=== PATIENT | female | born 1960 | race Caucasian/White ===

== ENCOUNTER 2016-07-10 21:30 | Emergency (ER) | payer OTHER ==
[2016-07-10 21:40] VITALS: O2SAT 94
--- NOTE | 2016-07-10 22:03 | EDPHY ---
H & P Stated Complaint: pt c/o R lower back pain x 1 day, pain getting worse Time Seen by Provider: 07/10/16 21:44 HPI/ROS: CHIEF COMPLAINT: Right flank pain times 24 hours HISTORY OF PRESENT ILLNESS: 56-year-old female history of obesity complaining of atraumatic right flank pain for the past 24 hours. Pain described as a constant dull ache. She does describe pain which is reproducible with range of motion. She describes a deep ache does not feel it is secondary to acute muscular strain. She denies: Abdominal pain, fever, chills, incontinence, retention, saddle anesthesia, radiculopathy, trauma, rash or vesicles no incontinence. No retention. No saddle anesthesia. No radiculopathy. No midline back pain. REVIEW OF SYSTEMS: A ten point review of systems was performed and is negative with the exception of the items mentioned in the HPI PAST MEDICAL & SURGICAL HISTORY: Atrial fibrillation. Hysterectomy. Hepatitis-C. Obesity. SOCIAL HISTORY:nonsmoker PHYSICAL EXAM (Prior to examination, patient consented to physical exam, hands were washed and my usual and customary physical exam procedures followed) 1) GENERAL: obese female, alert and oriented. Appears nontoxic. 2) HEAD: Normocephalic, atraumatic 3) HEENT: Pupils equal, round, reactive to light bilaterally. Sclera anicteric. Nasopharynx, oropharynx, clear, no lesions. 4) NECK: Full range of motion, no meningeal signs. 5) LUNGS: Clear auscultation bilaterally, no wheezes, no rhonchi, no retractions. 6) HEART: Regular rate and rhythm, no murmur, no heave, no gallop. 7) ABDOMEN: No guarding, no rebound, no focal tenderness, negative McBurney's, negative Gonzalez's, negative Rovsing's, negative peritoneal sign, 8) MUSCULOSKELETAL: Moving all extremities, no focal areas of tenderness, no obvious trauma. No peripheral edema or discoloration. Patella and Achilles reflexes intact to bilateral strength 5/5. No footdrop. 9) BACK: reproducible right flank and paraspinous pain with range of motion. No CVA tenderness, no midline vertebral tenderness, no fluctuance, no step-off, no obvious trauma, no visual or palpable abnormality. 10) SKIN: No rash, no petechiae. 11) Psychiatric: Patient is oriented X 3, there is no agitation. DIFFERENTIAL DIAGNOSIS: in no particular include but limited to nephrolithiasis, pyelonephritis, abdominal aortic aneurysm, zoster, muscle strain - Medical/Surgical History Hx Asthma: No Hx Chronic Respiratory Disease: No Hx Diabetes: No Hx Cardiac Disease: Yes Hx Renal Disease: No Hx Cirrhosis: No Hx Alcoholism: No Hx HIV/AIDS: No Hx Splenectomy or Spleen Trauma: No Other PMH: PACER AFIB, hysterectomy, hep c - Social History Smoking Status: Current every day smoker Constitutional: Initial Vital Signs Temperature (C) 36.7 C 07/10/16 21:35 Heart Rate 76 07/10/16 21:35 Respiratory Rate 16 07/10/16 21:35 Blood Pressure 161/87 H 07/10/16 21:35 O2 Sat (%) 94 07/10/16 21:35 O2 Delivery Mode Room Air Allergies/Adverse Reactions: codeine [Codeine] Allergy (Mild, Verified 07/10/16 21:40) Rash Home Medications: Medication Instructions Recorded Metoprolol 10/23/09 Amoxicillin 07/10/16 Cephalexin [Keflex] 500 mg PO TID 10 Days 07/10/16 Eliquis 07/10/16 Multaq 400 mg (*) 07/10/16 Medical Decision Making - Diagnostics Imaging: CT Scan of the Abdomen and Pelvis (Without Contrast) Clinical Indications: Flank pain. Technique: Multidetector helical CT imaging was performed from the diaphragm to the symphysis pubis. Routine reconstructions were performed. Dose reduction techniques were utilized. Findings Abdomen: The lung bases are clear, and there is no significant pleural fluid. The liver is normal. The biliary ducts and gallbladder are unremarkable. The pancreas and spleen are normal. The adrenal glands and kidneys are normal. No adenopathy and no masses are found. No aneurysm of the abdominal aorta. Pelvis: The urinary bladder is unremarkable. No free fluid in the pelvis. No masses are identified. Bowel loops are normal. The uterus is absent. Impression: Normal CT of the abdomen and pelvis, without contrast. Critical results relayed by Dr. Bernabe to WALDEMAR Massey, on July 10, 2016 at 2241 hours. Dictated By: Ziggy Bernabe MD Images reviewed by myself - Data Points Laboratory Results: Laboratory Results 07/10/16 22:05 07/10/16 22:05 07/10/16 07/10/16 22:05 21:57 WBC 10.35 H 10^3/uL (3.80-9.50) RBC 4.68 10^6/uL (4.18-5.33) Hgb 15.7 g/dL (12.6-16.3) Hct 44.9 % (38.0-47.0) MCV 95.9 fL (81.5-99.8) MCH 33.5 pg (27.9-34.1) MCHC 35.0 g/dL (32.4-36.7) RDW 12.0 % (11.5-15.2) Plt Count 202 10^3/uL (150-400) MPV 10.1 fL (8.7-11.7) Neut % (Auto) 51.4 % (39.3-74.2) Lymph % (Auto) 37.2 % (15.0-45.0) [place] % (Auto) 6.6 % (4.5-13.0) Eos % (Auto) 3.7 % (0.6-7.6) Baso % (Auto) 0.8 % (0.3-1.7) Nucleat RBC Rel Count 0.0 % (0.0-0.2) Absolute Neuts (auto) 5.33 10^3/uL (1.70-6.50) Absolute Lymphs (auto) 3.85 H 10^3/uL (1.00-3.00) Absolute Monos (auto) 0.68 10^3/uL (0.30-0.80) Absolute Eos (auto) 0.38 10^3/uL (0.03-0.40) Absolute Basos (auto) 0.08 10^3/uL (0.02-0.10) Absolute Nucleated RBC 0.00 10^3/uL (0-0.01) Immature Gran % 0.3 % (0.0-1.1) Immature Gran # 0.03 10^3/uL (0.00-0.10) Sodium 142 mEq/L (134-144) Potassium 3.7 mEq/L (3.5-5.2) Chloride 105 mEq/L (97-110) Carbon Dioxide 25 mEq/l (22-31) Anion Gap 12 mEq/L (8-16) BUN 16 mg/dL (7-23) Creatinine 0.7 mg/dL (0.6-1.0) Estimated GFR > 60 Glucose 85 mg/dL (70-100) Calcium 9.6 mg/dL (8.5-10.4) Total Bilirubin 0.6 mg/dL (0.1-1.4) Conjugated Bilirubin 0.2 mg/dL (0.0-0.5) Unconjugated Bilirubin 0.4 mg/dL (0.0-1.1) AST 30 IU/L (14-46) ALT 38 IU/L (9-52) Alkaline Phosphatase 76 IU/L (38-126) Total Protein 7.3 g/dL (6.3-8.2) Albumin 4.2 g/dL (3.5-5.0) Lipase 128.0 IU/L (23-300) Urine Color YELLOW Urine Appearance CLEAR Urine pH 5.0 (5.0-7.5) Ur Specific [place] 1.008 (1.002-1.030) Urine Protein NEGATIVE (NEGATIVE) Urine Ketones NEGATIVE (NEGATIVE) Urine Blood NEGATIVE (NEGATIVE) Urine Nitrate NEGATIVE (NEGATIVE) Urine Bilirubin NEGATIVE (NEGATIVE) Urine Urobilinogen NEGATIVE EU (0.2-1.0) Ur Leukocyte Esterase 1+ H (NEGATIVE) Urine RBC 1-3 /hpf (0-3) Urine WBC 5-10 H /hpf (0-3) Ur Epithelial Cells TRACE /lpf (NONE-1+) Urine Glucose NEGATIVE (NEGATIVE) Departure - Departure Disposition: Home, Routine, Self-Care Clinical Impression: Pyelonephritis Condition: Good Instructions: Flank Pain (ED), Kidney Infection (ED) Additional Instructions: Return to the ER immediately if you experience fevers/chills, flu like symptoms , inability to tolerate oral intake, nausea or vomiting, or any other symptoms that concern you. Referrals: Ngoc Gupta NP [Primary Care Provider] - 1-2 days without fail Prescriptions: Cephalexin [Keflex] 500 mg PO TID 10 Days
[2016-07-10 22:05] LABS: COLOR YELLOW; LEUKOCYTE ESTERASE,URINE 1+ (NEGATIVE); NITRITE,URINE NEGATIVE (NEGATIVE)
[2016-07-10 22:19] LABS: % IMMATURE GRANULYOCYTES 0.3 % (0.0-1.1); ABSOLUTE IMMATURE GRANULOCYTES 0.03 10^3/uL (0.00-0.10); ADD DIFF? NO; ADD MORPH? NO; ADD SCAN? NO; ATYPICAL LYMPHOCYTE FLAG 10 (0-99); FRAGMENT RBC FLAG 0 (0-99); HEMATOCRIT 44.9 % (38.0-47.0); HEMOGLOBIN 15.7 g/dL (12.6-16.3); LEFT SHIFT FLG 0 (0-99); LIPEMIA HEMOLYSIS FLAG 90 (0-99); MEAN CELL HEMOGLOBIN 33.5 pg (27.9-34.1); MEAN CELL VOLUME 95.9 fL (81.5-99.8); MEAN PLATELET VOLUME 10.1 fL (8.7-11.7); PLATELET CLUMPS FLAG 10 (0-99); PLATELET COUNT 202 10^3/uL (150-400); RED BLOOD CELL COUNT 4.68 10^6/uL (4.18-5.33)
[2016-07-10 22:37] LABS: ALANINE AMINOTRANSFERASE 38 IU/L (9-52); ALBUMIN 4.2 g/dL (3.5-5.0); ALKALINE PHOSPHATASE 76 IU/L (38-126); ANION GAP 12 mEq/L (8-16); ASPARTATE AMINOTRANSFERASE 30 IU/L (14-46); BILIRUBIN,TOTAL 0.6 mg/dL (0.1-1.4); BILIRUBIN-CONJUGATED 0.2 mg/dL (0.0-0.5); BILIRUBIN-UNCONJUGATED 0.4 mg/dL (0.0-1.1); CALCIUM 9.6 mg/dL (8.5-10.4); CARBON DIOXIDE 25 mEq/l (22-31); CHLORIDE 105 mEq/L (97-110); CREATININE 0.7 mg/dL (0.6-1.0); GLOMERULAR FILTRATION RATE > 60; GLUCOSE 85 mg/dL (70-100); POTASSIUM 3.7 mEq/L (3.5-5.2); SODIUM 142 mEq/L (134-144); TOTAL PROTEIN 7.3 g/dL (6.3-8.2)
--- NOTE | 2016-07-10 22:44 | CT ---
CT Scan of the Abdomen and Pelvis (Without Contrast) Clinical Indications: Flank pain. Technique: Multidetector helical CT imaging was performed from the diaphragm to the symphysis pubis. Routine reconstructions were performed. Dose reduction techniques were utilized. Findings Abdomen: The lung bases are clear, and there is no significant pleural fluid. The liver is normal. The biliary ducts and gallbladder are unremarkable. The pancreas and spleen are normal. The adrena l glands and kidneys are normal. No adenopathy and no masses are found. No aneurysm of the abdomina l aorta. Pelvis: The urinary bladder is unremarkable. No free fluid in the pelvis. No masses are identified . Bowel loops are normal. The uterus is absent. Impression: Normal CT of the abdomen and pelvis, without contrast. Critical results relayed by Dr. Bernabe to WALDEMAR Massey, on July 10, 2016 at 2241 hours.
[2016-07-10] MEDS ORDERED: HYDROCOD/APAP 5/325 PREPACK#6 BTL TAKEHOME ONE (23:23)
[2016-07-10] MEDS ORDERED: HYDROCODONE/APAP 5/325 TAB PO ONE (23:25)
[2016-07-10 23:51] VITALS: BP 134/85; PULSE 72; RESP 20; TEMP 98.2
== END 2016-07-10 23:52 | disposition home or self-care (01) ==
DX: N12 Tubulo-interstitial nephritis, not specified as acute or chronic (principal); F17.200 Nicotine dependence, unspecified, uncomplicated; B96.89 Other specified bacterial agents as the cause of diseases classified elsewhere
CPT/HCPCS: 96365; J0696

== ENCOUNTER 2016-09-24 11:35 | Day surgery (SDC) | payer OTHER ==
[2016-09-24] MEDS ORDERED: DIAZEPAM 5 MG TAB PO ONE (11:38)
[2016-09-24] MEDS ORDERED: NS 1,000 ML IV ONE (11:38)
[2016-09-24] MEDS ORDERED: ceFAZolin 2 GM/DEXTROSE 100 ML IV ONE (11:38)
[2016-09-24] MEDS ORDERED: BACITRACIN IRRIGATION/NS 50,000 UNITS/1,000 ML BTL IRR ONE (11:38)
[2016-09-24] MEDS ORDERED: diphenhydrAMINE 25 MG CAP PO ONE (11:38)
--- NOTE | 2016-09-24 12:08 | CPEKG ---
Heart Rate: 73 RR Interval: 822 P-R Interval: 176 QRSD Interval: 102 QT Interval: 416 QTC Interval: 459 P [place]: 66 QRS [place]: -30 T Wave [place]: 21 EKG Severity - OTHERWISE NORMAL ECG - EKG Impression: SINUS RHYTHM EKG Impression: LEFT AXIS DEVIATION EKG Impression: NORMAL SINUS RHYTHM HAS REPLACED ATRIAL FIBRILLATION NOTED ON PRIOR ECG Electronically Signed By: Richard Koehler 24-Sep-2016 12:54:00
[2016-09-24 12:21] LABS: % IMMATURE GRANULYOCYTES 0.1 % (0.0-1.1); ABSOLUTE IMMATURE GRANULOCYTES 0.01 10^3/uL (0.00-0.10); ADD DIFF? NO; ADD MORPH? NO; ADD SCAN? NO; ATYPICAL LYMPHOCYTE FLAG 10 (0-99); FRAGMENT RBC FLAG 0 (0-99); HEMATOCRIT 47.3 % (38.0-47.0); LEFT SHIFT FLG 0 (0-99); LIPEMIA HEMOLYSIS FLAG 90 (0-99); MEAN CELL HEMOGLOBIN 31.9 pg (27.9-34.1); MEAN CELL HEMOGLOBIN CONCENTR. 33.8 g/dL (32.4-36.7); MEAN CELL VOLUME 94.2 fL (81.5-99.8); MEAN PLATELET VOLUME 11.2 fL (8.7-11.7); PLATELET CLUMPS FLAG 40 (0-99); PLATELET COUNT 190 10^3/uL (150-400); RED BLOOD CELL COUNT 5.02 10^6/uL (4.18-5.33); RED CELL DISTRIBUTION WIDTH 12.4 % (11.5-15.2)
[2016-09-24 12:34] LABS: INR 0.86 (0.83-1.16); PROTIME(PATIENT) 11.6 SEC (12.0-15.0)
[2016-09-24 12:59] LABS: ANION GAP 12 mEq/L (8-16); CALCIUM 9.9 mg/dL (8.5-10.4); CARBON DIOXIDE 22 mEq/l (22-31); CHLORIDE 107 mEq/L (97-110); CREATININE 0.6 mg/dL (0.6-1.0); GLOMERULAR FILTRATION RATE > 60; GLUCOSE 88 mg/dL (70-100); POTASSIUM 4.9 mEq/L (3.5-5.2); SODIUM 141 mEq/L (134-144); SPECIMEN HEMOLYSIS 130
[2016-09-24] MEDS ORDERED: fentaNYL 100 MCG/2 ML INJ ONE (13:27)
[2016-09-24] MEDS ORDERED: MIDAZOLAM 2 MG/2 ML VIAL ONE (13:27)
[2016-09-24] MEDS ORDERED: BUPIVACAINE 0.5% 30 ML SDV ONE (13:27)
--- NOTE | 2016-09-24 14:17 | EPPROC ---
Electrophysiology Procedure Note: PROCEDURE PERFORMED: 1. AV Pacemaker generator change INDICATION: Pacemaker generator at BOGDAN Bradycardia PROCEDURE NOTE: Patient presented to the cardiac catheterization laboratory in a fasting, postabsorptive state. CCL RN administered sedation. The left infraclavicular area was prepped and draped in the usual sterile fashion. Lidocaine plus bupivacaine was used for local anesthesia. Using a combination of blunt and sharp dissection and electrocautery, the dissection was carried down to the prepectoral fascia and the existing pacemaker pocket was opened. The pacemaker generator was disconnected from the leads and the lead thresholds and impedance were checked. The pacemaker pocket was copiously irrigated with antibiotic solution. The pocket was again inspected for any bleeding. The leads were attached to the pacemaker securely. The pacemaker was inserted into the pocket and secured in place with a nonabsorbable suture. The pacemaker pocket was closed in 3 layers with absorbable monocryl sutures and pj. Appropriate dressing was applied. The patient left the cardiac catheterization laboratory in stable condition. Serial Numbers: 1. Device Biotronik Etrinsa [id number] 2. Atrial Lead SJM 1882 [id number] 3. Ventricular Lead Biotronik Setrox S53 SN [id number] Stimulation Thresholds & Impedance Measurements: 1. Atrial Lead P 3.6 mV 1.4 V 0.4 ms 351 ohm 2. Ventricular Lead R 5.2mV 1.1 V 0.4 ms 476 ohm [place] Pacing Parameters 1. Pacing mode DDD CLS 2. Lower rate 70 ppm 3. Upper tracking rate 130 ppm 4. Upper sensor rate 130 ppm Patient Problems: Problems Problem Status Onset Bradycardia Acute
== END 2016-09-24 17:30 | disposition home or self-care (01) ==
LOC: FCATH 11:35
PROVIDERS: ATTEND Internal Medicine Cardiovascular Disease
DX: Z45.010 Encounter for checking and testing of cardiac pacemaker pulse generator [battery] (principal); R00.1 Bradycardia, unspecified; I48.91 Unspecified atrial fibrillation; I47.2 Ventricular tachycardia; I44.1 Atrioventricular block, second degree; I44.2 Atrioventricular block, complete; I25.10 Atherosclerotic heart disease of native coronary artery without angina pectoris; E78.5 Hyperlipidemia, unspecified; I27.2 Other secondary pulmonary hypertension; Z79.01 Long term (current) use of anticoagulants; Z79.82 Long term (current) use of aspirin
CPT/HCPCS: C1785; J0690; J2250; J3010

== ENCOUNTER → 2017-05-12 | Outpatient (CLI) | payer OTHER | LOC: BMCIMAGING 19:00 | PROVIDERS: ATTEND Family Medicine | DX: R05 Cough (principal); R06.02 Shortness of breath ==

== ENCOUNTER 2018-01-13 11:03 | Observation (INO) | payer OTHER ==
[2018-01-13] MEDS ORDERED: ceFAZolin 2 GM/DEXTROSE 100 ML IV ONE (11:06)
[2018-01-13] MEDS ORDERED: BACITRACIN IRRIGATION/NS 50,000 UNITS/1,000 ML BTL IRR ONE (11:06)
[2018-01-13] MEDS ORDERED: NS 1,000 ML IV ONE (11:06)
--- NOTE | 2018-01-13 11:32 | CPEKG ---
Heart Rate: 82 RR Interval: 732 P-R Interval: 184 QRSD Interval: 104 QT Interval: 384 QTC Interval: 449 QRS [place]: -26 T Wave [place]: 39 EKG Severity - ABNORMAL ECG - EKG Impression: ATRIAL-PACED RHYTHM EKG Impression: BORDERLINE LEFT AXIS DEVIATION Electronically Signed By: Cole Joaquin 13-Jan-2018 11:56:20
[2018-01-13] MEDS ORDERED: LIDOCAINE 1% 300 MG/30 ML SDV ONE ×2 (11:35→11:36)
[2018-01-13] MEDS ORDERED: BUPIVACAINE 0.75% 10 ML SDV ONE ×2 (11:35→11:36)
[2018-01-13] MEDS ORDERED: IOPAMIDOL (ISOVUE-300) 100 ML BTL ONE (11:36)
[2018-01-13] MEDS ORDERED: ISOPROTERENOL HCL/D5W 0.2 MG/50 ML BAG IV ONE (11:36)
[2018-01-13] MEDS ORDERED: MIDAZOLAM 2 MG/2 ML VIAL IVP ONE (11:40)
--- NOTE | 2018-01-13 11:42 | PDANEPAE ---
ANE History of Present Illness ep study ANE Past Medical History - Cardiovascular History Hx Hypertension: No Hx Arrhythmias: Yes Hx Chest Pain: No Hx Coronary Artery / Peripheral Vascular Disease: No Hx CHF / Valvular Disease: No Hx Palpitations: No - Pulmonary History Hx COPD: No Hx Asthma/Reactive Airway Disease: No Hx Recent Upper Respiratory Infection: No Hx Oxygen in Use at Home: No Pulmonary History Comment: smoker, pneumonia this winter - Neurologic History Hx Cerebrovascular Accident: No Hx Seizures: No Hx Dementia: No - Endocrine History Hx Diabetes: No Hypothyroid: No Hyperthyroid: No - Renal History Hx Renal Disorders: No - Liver History Hx Hepatic Disorders: No ANE Review of Systems Review of Systems: ANE Patient History - Allergies Allergies/Adverse Reactions: codeine [Codeine] Allergy (Mild, Verified 07/10/16 21:40) Rash - Home Medications Home medications: home medication list seen and reviewed Home Medications: Metoprolol Succinate Xr [Toprol Xl 100 mg (*)] 100 mg PO DAILY #0 10/23/09 [ Last Taken Unknown] Apixaban [Eliquis] 5 mg PO BID #0 07/10/16 [Last Taken Unknown] Dronedarone HCl [Multaq 400 mg (*)] 400 mg PO BIDMEAL #0 07/10/16 [Last Taken Unknown] Atorvastatin Calcium [Lipitor 40 mg (*)] 40 mg PO DAILY 01/07/18 [Last Taken Unknown] - NPO status NPO Status: no food or drink >8 hours - Anes Hx Anes Hx: no prior problems - Smoking Hx Smoking Status: Current every day smoker ANE Physical Exam - Airway Mallampati Score: Class 2 - Pulmonary Pulmonary: no respiratory distress - Cardiovascular Cardiovascular: regular rate and rhythym - ASA Status ASA Status: III ANE Anesthesia Plan Anesthesia Plan: general endotracheal anesthesia, GA w LMA
[2018-01-13] MEDS ORDERED: DEXAMETHASONE 4 MG/ML VIAL ONE (11:49)
[2018-01-13] MEDS ORDERED: MIDAZOLAM 2 MG/2 ML VIAL ONE (11:50)
[2018-01-13] MEDS ORDERED: fentaNYL 100 MCG/2 ML INJ ONE (11:51)
[2018-01-13] MEDS ORDERED: ONDANSETRON 4 MG/2 ML VIAL ONE (11:51)
[2018-01-13] MEDS ORDERED: PROPOFOL 200 MG/20 ML VIAL ONE (11:52)
[2018-01-13 12:04] LABS: PLATELET COUNT 184 10^3/uL (150-400)
[2018-01-13 12:12] LABS: INR 0.88 (0.83-1.16); PROTIME(PATIENT) 12.2 SEC (12.0-15.0)
--- NOTE | 2018-01-13 12:23 | PDGENHP ---
History & Physical Chief Complaint: vt on pacemaker check Relevant Physical Exam: s1s2 rrr. c ta. ao3 Cardiorespiratory Assessment: Plan EP study for inducible VT. If VT inducible, plan ICD implant. Patient wants ICD to be done at the same time as EP study if necessary.
[2018-01-13] MEDS ORDERED: hydrALAZINE 20 MG/ML VIAL ONE (12:46)
[2018-01-13] MEDS ORDERED: ROCURONIUM 50 MG/5 ML VIAL ONE ×2 (12:50)
[2018-01-13] MEDS ORDERED: HEPARIN 10,000 UNIT/10 ML MDV (1,000 UNIT/ML) ONE (12:50)
[2018-01-13] MEDS ORDERED: LABETALOL HCL 5 MG/ML 20 ML MDV ONE (13:25)
[2018-01-13] MEDS ORDERED: LR 500 ML IV PRN (13:47)
[2018-01-13] MEDS ORDERED: NALOXONE HCL 0.4 MG/ML INJ IVP PRN (13:47)
[2018-01-13] MEDS ORDERED: ALBUTEROL 3 ML DEYVIAL IH PRN (13:47)
[2018-01-13] MEDS ORDERED: fentaNYL 100 MCG/2 ML INJ IVP PRN (13:47)
[2018-01-13] MEDS ORDERED: HYDROCODONE/APAP 5/325 TAB PO PRN (13:47)
[2018-01-13] MEDS ORDERED: ONDANSETRON 4 MG/2 ML VIAL IVP PRN (13:47)
--- NOTE | 2018-01-13 13:48 | POSTANESTH ---
Post Anesthetic Evaluation Cardiovascular Status: Normal, Stable Respiratory Status: Normal, Stable Level of Consciousness/Mental Status: Can Participate in Eval Pain Control: Adequate, Prn Tx Ordered Nausea/Vomiting Control: Adequate, Prn Tx Ordered Complications Possibly Related to Anesthesia: None Noted
--- NOTE | 2018-01-13 14:22 | EPPROC ---
Electrophysiology Procedure Note: DIAGNOSTIC ELECTROPHYSIOLOGIC STUDY Procedures performed: 1. Fluoroscopy 2. EP evaluation with RA/RV/LA pace/record, with arrhythmia induction 3. EP evaluation with RA/RV pace record, insert/reposition catheter, with arrhythmia induction 4. Programmed stimulation + pacing after IV drug INDICATION: Nonsustained ventricular tachycardia seen on pacemaker check Paroxysmal complete AV block Mildly abnormal PET-CT scan done at [facility] PROCEDURE: Catheters & Anesthesia: The patient arrived in the Electrophysiology Laboratory in the fasting state. The right clavicular region, right groin, & left groin area were prepped & draped in the usual sterile manner. Dr. Nilton Burrell administered anesthesia. Appropriate non-invasive blood pressure, pulse oximetry & end-tidal CO2 monitoring was established. All catheters were placed percutaneously using the modified Seldinger technique , and advanced into position under fluoroscopic guidance. Vascular ultrasound was used for access. One #7 [place] deflectable octapolar electrode catheter was advanced to the His-bundle position via the left femoral vein. This catheter was moved into the coronary sinus but we could not advance it into a lateral vein for pacing. This catheter was also moved to the RV OT and RV apex. Programmed ventricular stimulation at multiple sites using standard protocol with and without isoproterenol did not induce any ventricular arrhythmias. Programmed stimulation was performed from the right atrium, right ventricle and coronary sinus (left atrium). Heparin 3000 U was administered. No sustained reentrant tachycardia was induced during programmed stimulation at baseline or during graded doses of isoproterenol up to 4 mcg/min. The catheters were removed. Vascular access sheaths were removed in the EP lab after placing subcutaneous pursestring suture. The patient was transferred to the cardiovascular holding area in stable condition. There were no apparent complications. CONCLUSIONS 1. Normal sinus and AV node function. 2. No evidence of accessory AV pathway presence. 3. No sustained arrhythmias induced. 4. No apparent complications. Patient Problems: Problems Problem Status Onset Bradycardia Acute
--- NOTE | 2018-01-13 15:05 | CPEKG ---
Heart Rate: 82 RR Interval: 732 P-R Interval: 196 QRSD Interval: 104 QT Interval: 400 QTC Interval: 468 P [place]: 65 QRS [place]: -24 T Wave [place]: 40 EKG Severity - OTHERWISE NORMAL ECG - EKG Impression: SINUS RHYTHM EKG Impression: BORDERLINE LEFT AXIS DEVIATION Electronically Signed By: Cole Joaquin 13-Jan-2018 15:26:45
[2018-01-14 07:55] VITALS: BP 125/72
--- NOTE | 2018-01-14 08:45 | CPEKG ---
Heart Rate: 79 RR Interval: 759 P-R Interval: 220 QRSD Interval: 110 QT Interval: 400 QTC Interval: 459 QRS [place]: -17 T Wave [place]: 27 EKG Severity - ABNORMAL ECG - EKG Impression: ATRIAL-PACED RHYTHM Electronically Signed By: Cole Joaquin 14-Jan-2018 09:49:33
[2018-01-14] MEDS ORDERED: METOPROLOL SUCCINATE XR 100 MG TAB PO SCH (09:15)
[2018-01-14] MEDS ORDERED: APIXABAN 5 MG TAB PO SCH (09:15)
[2018-01-14] MEDS ORDERED: ATORVASTATIN CALCIUM 40 MG TAB PO SCH (09:15)
[2018-01-14] MEDS ORDERED: PNEUMOCOCCAL 0.5ML VACCINE VIAL IM ONE (09:26)
[2018-01-14] MEDS ORDERED: DRONEDARONE HCL 400 MG TAB PO SCH (18:00)
--- NOTE | 2018-01-14 23:19 | GDS ---
[f rep st] DISCHARGE SUMMARY DISCHARGE DIAGNOSES: 1. Nonsustained ventricular tachycardia seen on pacemaker check with electrophysiology study showing no evidence of accessory atrioventricular pathways. 2. History of 2nd and 3rd degree atrioventricular block, status post permanent pacemaker in 2009. 3. History of paroxysmal atrial fibrillation, on antiarrhythmic therapy and anticoagulation. PROCEDURE: 01/13/2018, EP study with no inducible arrhythmias. HISTORY/HOSPITAL COURSE: Please see dictated H and P from our office by Dr. López for complete details . In brief, the patient is a 57-year-old female with a history of pacemaker placement in 2009, in the setting of presyncope and 2nd and 3rd degree AV blocks. She has had PET-CT at [facility] that shows some basal inferolateral focal uptake, but no findings pathognomonic for sarcoidosis. S he was offered EP study with possible ICD and was agreeable to the EP study, which was performed yest erday. On day of discharge, patient denies any groin site pain. Her purse string suture was removed. PHYSICAL EXAMINATION: VITAL SIGNS: On day of discharge, blood pressure 125/72, heart rate of 83, res pirations 18, O2 saturation 94% on room air, temp of 98.8 degrees Fahrenheit. GENERAL: She is a pleas ant female in no apparent distress. HEENT: Head is normocephalic, atraumatic. Eyes are without sclera l icterus. NECK: Neck veins are flat. HEART: Regular rate and rhythm. LUNGS: Clear. GROINS: Right mati in site without ecchymosis or bruit auscultated. LABORATORY DATA: CBC with WBC 7.97, hemoglobin 16.5, hematocrit 47.3, platelet count 184. BMP with s odium 139, potassium 4.1, chloride 107, CO2 24, BUN 14, creatinine 0.6, glucose 92. RESULTS PENDING: None. DIET: Per previous. ACTIVITY: Groin precautions as reviewed. DISCHARGE MEDICATIONS: Please see med reconciliation. She will continue all her home medications, wh ich include atorvastatin, metoprolol succinate, dronedarone, and apixaban. DISCHARGE FOLLOWUP: 1. Follow up with Dr. López in 6 weeks time. 2. Follow up with [facility] as scheduled. /[id number]/MODL
== END 2018-01-14 10:57 | disposition home or self-care (01) ==
LOC: FCATH 11:03 → F2W 13:54
PROVIDERS: ADMIT Internal Medicine Cardiovascular Disease; ATTEND Internal Medicine Cardiovascular Disease
PROC: 02HK3MZ Insertion of Cardiac Lead into Right Ventricle, Percutaneous Approach (ICD-10-PCS; principal; 2018-01-13)
PROC: 02H63MZ Insertion of Cardiac Lead into Right Atrium, Percutaneous Approach (ICD-10-PCS; principal; 2018-01-13)
PROC: 5A1213Z Performance of Cardiac Pacing, Intermittent (ICD-10-PCS; principal; 2018-01-13)
PROC: 4A023FZ Measurement of Cardiac Rhythm, Percutaneous Approach (ICD-10-PCS; principal; 2018-01-13)
DX: I47.2 Ventricular tachycardia (principal); Z95.0 Presence of cardiac pacemaker; Z79.01 Long term (current) use of anticoagulants
CPT/HCPCS: 93005; 93620; 93623; G0378; C1731; J0360; J0690; J1100; J1644; J2250; J2405; J2704; J3010; Q9967

== ENCOUNTER 2018-05-25 15:18 | Inpatient (IN) | payer OTHER ==
--- NOTE | 2018-05-25 15:47 | EDPHY ---
H & P Time Seen by Provider: 05/25/18 15:46 HPI/ROS: CHIEF COMPLAINT: "I am just blown up"worsening shortness of breath HISTORY OF PRESENT ILLNESS: 58-year-old woman has a history of ventricular tachycardia with implanted pacemaker, atrial fibrillation, coronary artery disease and hypertension. She says over the last week she has been retaining more fluid, her legs are swelling, she is more short of breath. Not associated with cough or fever or chest pain. Worse lying down and worse in the morning or with exertion. Symptoms severe associated with bilateral leg swelling. REVIEW OF SYSTEMS: Eye: no change in vision ENT: no sore throat Cardiac: no chest pain or syncope Pulmonary: HPI Abdomen: no vomiting, diarrhea, abdominal pain Musculoskeletal: HPI Skin: no rash Neuro: no headache Constitutional: no fever : no urinary symptoms A comprehensive 10 point review of systems is otherwise negative aside from elements mentioned in the history of present illness. PAST MEDICAL HISTORY: Includes pacemaker, atrial fibrillation, hysterectomy, coronary disease, hypertension Social history: Tobacco smoker General Appearance: Alert and conversant, cooperative. Eyes: No scleral icterus. ENT, Mouth: Normal mucous membranes. Respiratory: Decreased breath sounds bilaterally. Cardiovascular: Regular rate and rhythm. Tachycardic. Gastrointestinal: Abdomen is soft and non tender. Neurological: Alert, face symmetric, normal motor and sensory in extremities. Skin: Warm and dry, no rashes. Musculoskeletal: 4+ bilateral peripheral edema. Psychiatric: Not agitated. Emergency Department course/MDM: Patient presents in atrial flutter with rapid rate at 144. She likely has decompensated congestive heart failure. I am unable to locate an ejection fraction in her [employer] computer record and a call is placed to her educational adviser. Pulmonary embolism would be unlikely as she is still taking Eliquis and has not missed any doses. Diltiazem started after normal EF per cardiology, in September 2015. Discussed with Dr. Gonzalez at 4:45 p.m.. 1737: diltiazem infusing, HR 130, systolic blood pressure 130. Stable for admission. Smoking Status: Current some day smoker Constitutional: Initial Vital Signs Temperature (C) 36.7 C 05/25/18 15:22 Heart Rate 144 H 05/25/18 15:22 Respiratory Rate 18 05/25/18 15:22 Blood Pressure 149/105 H 05/25/18 15:22 O2 Sat (%) 97 05/25/18 15:22 O2 Delivery Mode Room Air Allergies/Adverse Reactions: codeine [Codeine] Allergy (Mild, Verified 05/25/18 15:28) Rash Home Medications: Medication Instructions Recorded Metoprolol Succinate Xr [Toprol Xl 100 mg PO DAILY #0 10/23/09 100 mg (*)] Apixaban [Eliquis] 5 mg PO BID #0 07/10/16 Atorvastatin Calcium [Lipitor 40 40 mg PO DAILY 01/07/18 mg (*)] Aspirin 81mg (*) 05/25/18 Medical Decision Making - Diagnostics EKG Interpretation: 12-lead EKG interpreted by me; official reading is in computer system. My interpretation is atrial flutter with rate 142, 2-1 block. Imaging Results: Imaging Impressions Chest X-Ray 05/25/18 15:57 Impression: Interval development of cardiomegaly and acute congestive heart failure with interstitial pulmonary edema.. Imaging: I viewed and interpreted images myself Differential Diagnosis: Differential diagnosis considered for shortness of breath including but not limited to pulmonary infectious process, COPD, asthma, pulmonary embolus and congestive heart failure. Consult/Admit Bed Type: Knight for Cards at 1639, EF normal 09/2015 by cath Critical Care Time: Critical care time spent by me, Dr. Russell, exclusively with the care of this patient was 30 minutes, exclusive of PA or INSTITUTIONAL ASSET MANAGER time and exclusive of separate procedures. The organ system at risk was cardiovascular and I ordered the IV diltiazem, multiple diagnostics, specialist consultation to stabilize the patient and prevent worsening of the patient's condition. - Data Points Laboratory Results: Laboratory Results 05/25/18 15:55 05/25/18 15:55 05/25/18 05/25/18 05/25/18 16:04 15:55 15:55 WBC 9.02 10^3/uL 10^3/uL (3.80-9.50) RBC 4.31 10^6/uL 10^6/uL (4.18-5.33) Hgb 13.8 g/dL g/dL (12.6-16.3) Hct 42.2 % % (38.0-47.0) MCV 97.9 fL fL (81.5-99.8) MCH 32.0 pg pg (27.9-34.1) MCHC 32.7 g/dL g/dL (32.4-36.7) RDW 12.8 % % (11.5-15.2) Plt Count 199 10^3/uL 10^3/uL (150-400) MPV 10.2 fL fL (8.7-11.7) Neut % (Auto) 63.7 % % (39.3-74.2) Lymph % (Auto) 25.3 % % (15.0-45.0) [place] % (Auto) 7.3 % % (4.5-13.0) Eos % (Auto) 2.5 % % (0.6-7.6) Baso % (Auto) 0.9 % % (0.3-1.7) Nucleat RBC Rel Count 0.0 % % (0.0-0.2) Absolute Neuts (auto) 5.74 10^3/uL 10^3/uL (1.70-6.50) Absolute Lymphs (auto) 2.28 10^3/uL 10^3/uL (1.00-3.00) Absolute Monos (auto) 0.66 10^3/uL 10^3/uL (0.30-0.80) Absolute Eos (auto) 0.23 10^3/uL 10^3/uL (0.03-0.40) Absolute Basos (auto) 0.08 10^3/uL 10^3/uL (0.02-0.10) Absolute Nucleated RBC 0.00 10^3/uL 10^3/uL (0-0.01) Immature Gran % 0.3 % % (0.0-1.1) Immature Gran # 0.03 10^3/uL 10^3/uL (0.00-0.10) Sodium 141 mEq/L mEq/L (135-145) Potassium 4.0 mEq/L mEq/L (3.3-5.0) Chloride 110 mEq/L mEq/L (97-110) Carbon Dioxide 23 mEq/l mEq/l (22-31) Anion Gap 8 mEq/L mEq/L (6-14) BUN 18 mg/dL mg/dL (7-23) Creatinine 0.8 mg/dL mg/dL (0.6-1.0) Estimated GFR > 60 Glucose 103 mg/dL H mg/dL (70-100) Calcium 9.9 mg/dL mg/dL (8.5-10.4) POC Troponin I 0.01 ng/mL ng/mL (0.00-0.08) NT-Pro-B Natriuret Pep 1020 pg/mL H pg/mL (0-125) Medications Given: Discontinued Medications Diltiazem HCl (Cardizem 25 Mg/5 Ml Vial) 10 mg IVP EDNOW ONE Stop: 05/25/18 16:41 Last Admin: 05/25/18 16:53 Dose: 10 mg Diltiazem/Dextrose (Diltiazem 125mg/125ml (Premix)) 125 mls @ 0 mls/hr IV EDNOW ONE; Titrate PRN Reason: Protocol Stop: 05/25/18 17:01 Last Admin: 05/25/18 17:12 Dose: 125 mls Point of Care Test Results: Chemistry 05/25/18 16:04 POC Troponin I 0.01 ng/mL ng/mL (0.00-0.08) Departure - Departure Disposition: [facility] Inpatient Acute Clinical Impression: Atrial flutter with rapid ventricular response Congestive heart failure Qualifiers: Heart failure type: unspecified Heart failure chronicity: acute Qualified Code( s): I50.9 - Heart failure, unspecified Condition: Fair
[2018-05-25 16:03] LABS: PLATELET COUNT 199 10^3/uL (150-400)
[2018-05-25] MEDS ORDERED: DILTIAZEM 125 MG in D5W 125 ML IV ONE (16:40)
[2018-05-25] MEDS ORDERED: DILTIAZEM 25 MG/5 ML VIAL IVP ONE (16:40)
[2018-05-25] MEDS ORDERED: DILTIAZEM HCL/D5W 125 ML IV ONE (17:00)
[2018-05-25] MEDS ORDERED: oxyCODONE IR 5 MG TAB PO PRN (17:16)
[2018-05-25] MEDS ORDERED: HYDROCODONE/APAP 5/325 TAB PO PRN (17:16)
[2018-05-25] MEDS ORDERED: PROMETHAZINE HCL 25 MG/ML INJ IVP PRN (17:16)
[2018-05-25] MEDS ORDERED: ONDANSETRON 4 MG/2 ML VIAL IVP PRN (17:16)
[2018-05-25] MEDS ORDERED: ONDANSETRON DISINTEGRATING 4 MG TAB PO PRN (17:16)
[2018-05-25] MEDS ORDERED: ACETAMINOPHEN 325 MG TAB PO PRN (17:16)
--- NOTE | 2018-05-25 17:25 | PDGENHP ---
History and Physical - Chief Complaint sob, weight gain - History of Present Illness 58 yo F with hx of a fib and VT with PPM in place presenting with complaints of increased weight (30 pounds in 1 week), intermittent SOB and SIMMS. She notes that her SOB is mostly at night while lying down but also bad in the morning when she is trying to do things. She states this has been going on for at least the last week but she has been trying to ignore it. She was called by her pacemaker rep with concerns that in review of her monitor she was having some abnormalities and he recommended she be seen by her transformer tester but when she didn't hear anything more from cardiology she figured it was nothing and did not follow up further. She does note that her legs are more swollen, not painful. She has not had chest pain, she has not had palpitations and she notes she never can tell when she is in a fib even when her rate is fast. She has not had recent illness. She does wake up at least every hour at night due to her sleep apnea but has not been able to tolerate cpap or oxygen at night. History Information - Allergies/Home Medication List Allergies/Adverse Reactions: codeine [Codeine] Allergy (Mild, Verified 05/25/18 15:28) Rash Home Medications: Metoprolol Succinate Xr [Toprol Xl 100 mg (*)] 100 mg PO DAILY #0 10/23/09 [ Last Taken Unknown] Apixaban [Eliquis] 5 mg PO BID #0 07/10/16 [Last Taken Unknown] Atorvastatin Calcium [Lipitor 40 mg (*)] 40 mg PO DAILY 01/07/18 [Last Taken Unknown] Aspirin 81mg (*) 05/25/18 [Last Taken Unknown] I have personally reviewed and updated: family history, medical history, social history, surgical history - Past Medical History atrial fibrillation, coronary artery disease (non obstructive), hypertension, hyperlipidemia Additional medical history: Mobitz 2. NSVT. LYLE-no cpap. 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 Review of Systems Review of Systems: ROS: 10pt was reviewed & negative except for what was stated in HPI & below Physical Exam Physical Exam: Temp Pulse Resp BP Pulse Ox 36.7 C 142 H 18 130/91 H 95 05/25/18 15:22 05/25/18 16:53 05/25/18 16:53 05/25/18 16:53 05/25/18 16:53 Constitutional: no apparent distress, appears nourished, obese Eyes: PERRL, anicteric sclera Ears, Nose, Mouth, Throat: moist mucous membranes, hearing normal Cardiovascular: irregularly irregular, tachycardia, edema Respiratory: no respiratory distress, reduced air movement, inspiratory crackles Gastrointestinal: normoactive bowel sounds, soft, non-tender abdomen Genitourinary: no bladder tenderness Skin: warm, normal color Musculoskeletal: no muscle tenderness, No asymmetric calves Neurologic: AAOx3 Psychiatric: interacting appropriately, not anxious, not encephalopathic Lab Data & Imaging Review 05/25/18 15:55 05/25/18 15:55 WBC 9.02 10^3/uL (3.80-9.50) 05/25/18 15:55 RBC 4.31 10^6/uL (4.18-5.33) 05/25/18 15:55 Hgb 13.8 g/dL (12.6-16.3) 05/25/18 15:55 Hct 42.2 % (38.0-47.0) 05/25/18 15:55 MCV 97.9 fL (81.5-99.8) 05/25/18 15:55 MCH 32.0 pg (27.9-34.1) 05/25/18 15:55 MCHC 32.7 g/dL (32.4-36.7) 05/25/18 15:55 RDW 12.8 % (11.5-15.2) 05/25/18 15:55 Plt Count 199 10^3/uL (150-400) 05/25/18 15:55 MPV 10.2 fL (8.7-11.7) 05/25/18 15:55 Neut % (Auto) 63.7 % (39.3-74.2) 05/25/18 15:55 Lymph % (Auto) 25.3 % (15.0-45.0) 05/25/18 15:55 Union % (Auto) 7.3 % (4.5-13.0) 05/25/18 15:55 Eos % (Auto) 2.5 % (0.6-7.6) 05/25/18 15:55 Baso % (Auto) 0.9 % (0.3-1.7) 05/25/18 15:55 Nucleat RBC Rel Count 0.0 % (0.0-0.2) 05/25/18 15:55 Absolute Neuts (auto) 5.74 10^3/uL (1.70-6.50) 05/25/18 15:55 Absolute Lymphs (auto) 2.28 10^3/uL (1.00-3.00) 05/25/18 15:55 Absolute Monos (auto) 0.66 10^3/uL (0.30-0.80) 05/25/18 15:55 Absolute Eos (auto) 0.23 10^3/uL (0.03-0.40) 05/25/18 15:55 Absolute Basos (auto) 0.08 10^3/uL (0.02-0.10) 05/25/18 15:55 Absolute Nucleated RBC 0.00 10^3/uL (0-0.01) 05/25/18 15:55 Immature Gran % 0.3 % (0.0-1.1) 05/25/18 15:55 Immature Gran # 0.03 10^3/uL (0.00-0.10) 05/25/18 15:55 Sodium 141 mEq/L (135-145) 05/25/18 15:55 Potassium 4.0 mEq/L (3.3-5.0) 05/25/18 15:55 Chloride 110 mEq/L (97-110) 05/25/18 15:55 Carbon Dioxide 23 mEq/l (22-31) 05/25/18 15:55 Anion Gap 8 mEq/L (6-14) 05/25/18 15:55 BUN 18 mg/dL (7-23) 05/25/18 15:55 Creatinine 0.8 mg/dL (0.6-1.0) 05/25/18 15:55 Estimated GFR > 60 05/25/18 15:55 Glucose 103 mg/dL (70-100) H 05/25/18 15:55 Calcium 9.9 mg/dL (8.5-10.4) 05/25/18 15:55 POC Troponin I 0.01 ng/mL (0.00-0.08) 05/25/18 16:04 NT-Pro-B Natriuret Pep 1020 pg/mL (0-125) H 05/25/18 15:55 Visualized and Interpreted Chest x-ray results: Yes Chest X-Ray results: other (cardiomegaly, pulmonary edema) Visualized and Interpreted EKG results: Yes EKG additional interpertation: a flutter, rate in 140s Assessment & Plan Assessment: 58 yo F with PMH of a fib, 2nd degree heart block and VT presenting with sob/ edema and weight gain due to chf exacerbation # chf with acute exacerbation: with prior normal EF but now presenting with increased lower extremity edema, pulmonary edema and new CM consistent with new onset CHF. Etiology likely related to tachyarryhthmia but also likely component of right heart failure with untreated lyle and likely ohs. Did have a cath in 2016 with non obstructive CAD so ischemia also possible but with no c/o chest pain etc. Will monitor on tele, trend trops, get echo in am. Cardiology to evaluate in am # a fib/flutter w/rvr: with rates in the 140s currently, started on dilt gtt and will continue overnight, cardiology aware, will keep on lovenox overnight for possible ALYSSA/CV in am # 2nd degree heart block/NSVT: with PPM in place for that, will ask for pacer interrogation # lyle/ohs: patient has not tolerated cpap in the past but has issues continuously with sleep--not sleeping more than one hour without waking up etc, not waking rested and with lower extremity edema likely at least in part related to pulm htn. Patient willing to try cpap again and will ask RT to place this evening # morbid obesity: recommend lifestyle modification # etoh use disorder: patient has had recommendation to cut down on her drinking before and declined, possibly relating to her presenting issue, echo pending, denies hx of w/d but also states she never goes without a drink, will hold off on ciwa # tobacco use: recommending cessation, she has cut down # IP status, will likely require > 48 hours stay for eval/mgmt of above given multiple active issues and need for IV diuresis Patient new to my care. Old records reviewed and summarized as above. Care plan reviewed with ER doctor as above.
[2018-05-25] MEDS ORDERED: FUROSEMIDE 20 MG/2 ML VIAL IVP ONE (18:55)
[2018-05-25] MEDS ORDERED: DILTIAZEM 125 MG in D5W 125 ML IV SCH (19:00)
--- NOTE | 2018-05-25 19:46 | CPEKG ---
Test Reason : OPEN Blood Pressure : / mmHG Vent. Rate : 142 BPM Atrial Rate : 144 BPM P-R Int : 092 ms QRS Dur : 102 ms QT Int : 353 ms P-R-T Axes : 000 -09 056 degrees QTc Int : 543 ms Atrial flutter with predominant 2:1 AV block Ventricular premature complex Minimal ST elevation, inferior leads Prolonged QT interval Confirmed by Devan Russell ([id number]) on 05/25/2018 7:45:46 PM Referred By: Confirmed By:Devan Russell
[2018-05-25] MEDS: ENOXAPARIN 150 MG/ML SYR SC SCH (21:16)
[2018-05-26 03:02] LABS: PLATELET COUNT 169 10^3/uL (150-400)
--- NOTE | 2018-05-26 09:09 | PDMN ---
Medical Necessity Medical necessity: MCG: M190 heart failure A-2 days: acute exacerbation, pt presents with increased LE edema, pulm. edema, cm, , afib/flutter with rvr rates 140's, 2nd degree heart block/NVST with PPM , LYLE/OHS pt does not tolerate CPAP, morbid obesity, ETOH use disorder, tobacco use, anticipate > 2 MN ongoing med nec care, further monitoring, eval and tx. cards consult pend.
--- NOTE | 2018-05-26 10:13 | PDCARPN ---
Cardiology Progress Note Chief Complaint: Atrial flutter Acute CHF Assessment/Plan: Assessment: 1. Atrial fibrillation/Atrial flutter with RVR: Patient presented to the ED yesterday with 1 week of progressive dyspnea and orthopnea. Dilt gtt overnight, HRs 100-120bpm at present. Navi was on hold, anticoagulated with Lovenox overnight. Shardaquis re-started this AM. 2. Acute CHF: Plan for echo this morning. BNP 1020 on admission. +BLE edema, orthopnea, and dyspnea. 3. LYLE: She has not tolerated CPAP in the past. She has been wearing supplemental 02 since admission 4. ETOH and tobacco use 5. 2nd degree heart block and NSVT s/p PPM Plan: 1. Plan for ALYSSA and Cardioversion tomorrow - patient will remain NPO after midnight 2. Continue Lasix 20mg IVP BID 3. Repeat labs tomorrow morning 4. Echocardiogram today 05/26/18 14:38 Subjective: No issues overnight. Dyspnea is stable Reviewed/Discussed With: multidisciplinary team Time Spent with Patient: greater than 25 minutes Time Spent with Patient: Greater than 25 minutes spent on this patients care, greater than 50% of time spent counseling, educating, and coordinating care regarding the above mentioned plan. Objective: Vital Signs (8 Hrs) Temp Pulse Resp BP Pulse Ox 05/26/18 08:47 36.3 C 96 20 109/65 94 05/26/18 05:44 36.6 C 108 H 16 100/65 95 Intake/Output (24 Hrs) 05/25/18 05/26/18 05/27/18 05:59 05:59 05:59 Intake Total 380 75 Output Total 1900 Balance -1520 75 Intake: Oral (ml) 200 IV Infused (ml) 180 75 Diltiazem 125 mg In D5w 180 75 125 ml @ Per Protocol IV CONT LORI Rx#:[id number] Output: Urine (ml) 1900 Bedside Commode 1900 Other: Weight 141.2 kg 140.568 kg Intake Quantity Yes Sufficient Result Diagrams: 05/26/18 02:30 05/26/18 02:30 Cardiac Labs: Cardiac Lab Results (72 Hrs) 05/26/18 05/25/18 02:30 19:45 Troponin I < 0.012 < 0.012 - Physical Exam Constitutional: WDWN, healthy appearing, no apparent distress Ears, Nose, Mouth, Throat: moist mucous membranes, no oral ulcers, no thrush Cardiovascular: no murmurs, irregularly irregular, other (tachycardia, +BLE edema) Respiratory: clear to auscultate bilat, no crackles, no wheezes Gastrointestinal: normoactive bowel sounds, no tenderness, no masses Neurologic: AAOx3, CN II-XII grossly intact Psychiatric: cooperative, interactive, following commands, not anxious ICD10 Worksheet Patient Problems: Problems Problem Status Onset Atrial flutter with rapid ventricular response Acute Congestive heart failure Acute Bradycardia Acute
[2018-05-26] MEDS: ENOXAPARIN 150 MG/ML SYR SC SCH (10:24)
[2018-05-26] MEDS: FUROSEMIDE 20 MG/2 ML VIAL IVP SCH ×2 (10:24→15:27)
--- NOTE | 2018-05-26 12:11 | CPEKG ---
Test Reason : OPEN Blood Pressure : / mmHG Vent. Rate : 087 BPM Atrial Rate : 294 BPM P-R Int : 064 ms QRS Dur : 199 ms QT Int : 415 ms P-R-T Axes : 062 039 038 degrees QTc Int : 500 ms Afib/flut and V-paced complexes Confirmed by Cruz Bynum ([id number]) on 05/26/2018 12:10:59 PM Referred By: Confirmed By:Cruz Bynum
--- NOTE | 2018-05-26 15:48 | ASMTCMCOM ---
CM Note CM Note Notes: Spoke with pt in the room during rounds. 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 Pt has sister in the area. Pt admitted for atrial flutter in the setting of CHF fluid overload. Pt to diurese further and then undergo cardioversion tomorrow. Pt likely to discharge in 2 - 4 days and will be independent on discharge. No therapies ordered. CM to follow. D/C Plan: Independent Date Signed: 05/26/2018 03:39 PM Electronically Signed By:Loni Liu
[2018-05-26] MEDS: DILTIAZEM HCL/D5W 125 ML IV SCH (16:43)
--- NOTE | 2018-05-26 18:12 | HOSPPROG ---
Hospitalist Progress Note Assessment/Plan: 58 yo F with PMH of a fib, 2nd degree heart block and VT presenting with sob/ edema and weight gain due to chf exacerbation. This is my first encounter with the patient. 1. Atrial fib/flutter w/RVR: Still with labile and elevated rates. - Continue dilt gtt - Cardiology consulted, discussed with Selene Knight. Plan for ALYSSA guided cardioversion tomorrow - Switch from LMWH to eliquis (what she was on prior to admit) 2. Acute CHF: Concern that she has new systolic dysfunction. - TTE pending - Trops/ecgs negative for acute ischemia (had negative cath with non- obstructive dz in 2016) - Lasix 20mg IV BID - Pending echo results, may need ischemic evaluation 3. LYLE: Non-compliant with CPAP. Using supplemental oxygen. 4. H/o NSVT: Has ICD in place for this reason. Will monitor electrolytes while diuresing. 5. EtOH use disorder: Not currently withdrawing. Hold on ciwa. 6. Tobacco use: Recommending cessation VTE ppx: therapeutic anticoagulation Diet: NPO at midnight Code: full Dispo: Remain inpatient for mgmt of rapid afib Subjective: Feels great, no major complaints other than leg swelling. Breathing better, can lie flat. Objective: Vital Signs Temp Pulse Resp BP Pulse Ox 37.0 C 114 H 14 110/78 93 05/26/18 16:22 05/26/18 16:22 05/26/18 16:22 05/26/18 16:22 05/26/18 16:22 Laboratory Results 05/26/18 02:30 05/26/18 02:30 05/25/18 05/26/18 05/27/18 05:59 05:59 05:59 Intake Total 380 75 Output Total 1900 1800 Balance -1520 -1725 - Physical Exam Constitutional: no apparent distress, obese Eyes: PERRL, anicteric sclera, EOMI Ears, Nose, Mouth, Throat: moist mucous membranes, hearing normal, ears appear normal, no oral mucosal ulcers Cardiovascular: irregularly irregular, tachycardia, edema Respiratory: no respiratory distress, reduced air movement (bases) Gastrointestinal: normoactive bowel sounds, soft, non-tender abdomen, no palpable masses Genitourinary: no bladder fullness, no bladder tenderness, no renal bruits Skin: warm Musculoskeletal: full muscle strength, no muscle tenderness, normal joint ROM Neurologic: AAOx3, sensation intact bilaterally Psychiatric: interacting appropriately, not anxious, not encephalopathic, thought process linear ICD10 Worksheet Patient Problems: Problems Problem Status Onset Atrial flutter with rapid ventricular response Acute Congestive heart failure Acute Bradycardia Acute
[2018-05-26] MEDS ORDERED: METOPROLOL SUCCINATE XR 100 MG TAB PO SCH (21:00)
[2018-05-26] MEDS: ATORVASTATIN CALCIUM 40 MG TAB PO SCH (21:53)
[2018-05-26] MEDS: APIXABAN 5 MG TAB PO SCH (21:53)
[2018-05-27] MEDS: DILTIAZEM HCL/D5W 125 ML IV SCH (00:37)
[2018-05-27 04:10] LABS: PLATELET COUNT 174 10^3/uL (150-400)
[2018-05-27 04:17] LABS: INR 1.18 (0.83-1.16); PROTIME(PATIENT) 15.2 SEC (12.0-15.0)
[2018-05-27] MEDS ORDERED: ATROPINE SULFATE 1 MG/10 ML SYR IVP ONE (06:00)
[2018-05-27] MEDS: APIXABAN 5 MG TAB PO SCH ×2 (07:49→20:26)
[2018-05-27] MEDS: FUROSEMIDE 20 MG/2 ML VIAL IVP SCH ×3 (07:50→15:01)
--- NOTE | 2018-05-27 08:11 | PDANEPAE ---
ANE History of Present Illness 58 yo for aron/cv ANE Past Medical History - Cardiovascular History Hx Hypertension: No Hx Arrhythmias: Yes Hx Chest Pain: No Hx Coronary Artery / Peripheral Vascular Disease: No Hx CHF / Valvular Disease: Yes Hx Palpitations: No - Pulmonary History Hx COPD: No Hx Asthma/Reactive Airway Disease: No Hx Recent Upper Respiratory Infection: No Hx Oxygen in Use at Home: Yes Hx Sleep Apnea: Yes Pulmonary History Comment: smoker, pneumonia this winter - Neurologic History Hx Cerebrovascular Accident: No Hx Seizures: No Hx Dementia: No - Endocrine History Hx Diabetes: No - Renal History Hx Renal Disorders: No - Liver History Hx Hepatic Disorders: No - Chronic Pain History Chronic Pain: No ANE Review of Systems Review of Systems: - Exercise capacity METS (RN): 3 METS - Pacemaker Pacemaker Clinical Application Specialist: [email or web address] Pacemaker Model: Etrinsa 8DRT Pacemaker Mode: DDD ANE Patient History - Allergies Allergies/Adverse Reactions: codeine [Codeine] Allergy (Mild, Verified 05/25/18 15:28) Rash - Home Medications Home medications: home medication list seen and reviewed Home Medications: Metoprolol Succinate Xr [Toprol Xl 100 mg (*)] 100 mg PO HS #0 10/23/09 [Last Taken 05/24/18] Apixaban [Eliquis] 5 mg PO BID #0 07/10/16 [Last Taken 05/25/18 08:00] Atorvastatin Calcium [Lipitor 40 mg (*)] 40 mg PO HS 01/07/18 [Last Taken ] Aspirin EC [Aspirin EC 81 mg (*)] 81 mg PO HS 05/25/18 [Last Taken 05/24/18] - NPO status NPO Status: no food or drink >8 hours - Anes Hx Anes Hx: no prior problems - Smoking Hx Smoking Status: Current some day smoker - Alcohol Use Alcohol Use: Heavy (3-5 drinks per night) ANE Labs/Vital Signs - Labs Result Diagrams: 05/27/18 04:00 05/27/18 04:00 - Vital Signs Blood Pressure: 121/69 Heart Rate: 84 Respiratory Rate: 18 O2 Sat (%): 88 Height: 5 ft 5 in Weight: 139.3 kg ANE Physical Exam - Airway Neck exam: FROM Mallampati Score: Class 2 Mouth exam: normal dental/mouth exam - Pulmonary Pulmonary: no respiratory distress - Cardiovascular Cardiovascular: regular rate and rhythym - ASA Status ASA Status: III, IV ANE Anesthesia Plan Anesthesia Plan: MAC
[2018-05-27] MEDS ORDERED: ATROPINE SULFATE 1 MG/10 ML SYR ONE (08:14)
[2018-05-27] MEDS ORDERED: PROPOFOL 200 MG/20 ML VIAL ONE ×2 (08:24→08:42)
[2018-05-27] MEDS: METOPROLOL SUCCINATE XR 100 MG TAB PO SCH (13:10)
--- NOTE | 2018-05-27 13:37 | PDTEE1 ---
ALYSSA Cardioversion Procedure Procedure: electrical cardioversion, transesophageal echo Indications: other (atrial flutter) Consent: signed and in chart Anticoagulation: eliquis Procedural Details: Pads were placed in anterior-posterior position. ALYSSA probe was advanced and standard images obtained. There is no evidence of left atrial or left atrial appendage thrombus. Synchronized cardioversion attempt #1: 200J Results: normal sinus rhythm Conclusions: successful ALYSSA cardioversion Patient Problems: Problems Problem Status Onset Congestive heart failure Acute Atrial flutter with rapid ventricular response Acute Bradycardia Acute
--- NOTE | 2018-05-27 16:29 | HOSPPROG ---
Hospitalist Progress Note Assessment/Plan: 58 yo F with PMH of a fib, 2nd degree heart block and VT presenting with sob/ edema and weight gain due to chf exacerbation. 1. Atrial fib/flutter w/RVR: - S/p successful cardioversion today, remains in sinus - Stopped dilt gtt - Continue metoprolol, eliquis - Cardiology following 2. Acute CHF: BNP improved, still with significant signs of right heart congestion - Continue lasix 20mg IV BID - TTE ordered - Trops/ecgs negative for acute ischemia (had negative cath with non- obstructive dz in 2016) 3. LYLE: Non-compliant with CPAP. Using supplemental oxygen. 4. H/o NSVT: Has ICD in place for this reason. Will monitor electrolytes while diuresing. - Device interrogation planned for today 5. EtOH use disorder: Not currently withdrawing. Hold on ciwa. 6. Tobacco use: Recommending cessation VTE ppx: therapeutic anticoagulation Diet: cardiac Code: full Dispo: Remain inpatient for ongoing IV diuresis. Possible discharge tomorrow pending clinical course, TTE, device interrogation. Subjective: Successful ALYSSA guided cardioversion this AM. Has remained in sinus rhythm. No LA clot. Feeling well this afternoon but still with significant leg edema. Breathing ok. Objective: Vital Signs Temp Pulse Resp BP Pulse Ox 36.6 C 83 12 122/72 H 97 05/27/18 15:59 05/27/18 15:59 05/27/18 15:59 05/27/18 15:59 05/27/18 15:59 Laboratory Results 05/27/18 04:00 05/27/18 04:00 05/26/18 05/27/18 05/28/18 05:59 05:59 05:59 Intake Total 380 1769 350 Output Total 1900 2200 250 Balance -1520 -431 100 PT 15.2 SEC (12.0-15.0) H 05/27/18 04:00 INR 1.18 (0.83-1.16) H 05/27/18 04:00 - Physical Exam Constitutional: no apparent distress, appears nourished, not in pain, obese Eyes: PERRL, anicteric sclera, EOMI Ears, Nose, Mouth, Throat: moist mucous membranes, hearing normal, ears appear normal, no oral mucosal ulcers Cardiovascular: regular rate and rhythym, no murmur, rub, or gallop, edema ( tense edema of BLE) Respiratory: no respiratory distress, no rales or rhonchi, clear to auscultation Gastrointestinal: normoactive bowel sounds, soft, non-tender abdomen, no palpable masses Genitourinary: no bladder fullness, no bladder tenderness, no renal bruits Skin: no rashes or abrasions, no fluctuance, no induration Musculoskeletal: full muscle strength, no muscle tenderness, normal joint ROM Neurologic: AAOx3, sensation intact bilaterally Psychiatric: interacting appropriately, not anxious, not encephalopathic, thought process linear ICD10 Worksheet Patient Problems: Problems Problem Status Onset Atrial flutter with rapid ventricular response Acute Congestive heart failure Acute Bradycardia Acute
--- NOTE | 2018-05-27 16:37 | CPEKG ---
Test Reason : OPEN Blood Pressure : / mmHG Vent. Rate : 074 BPM Atrial Rate : 074 BPM P-R Int : 196 ms QRS Dur : 110 ms QT Int : 419 ms P-R-T Axes : 088 -16 013 degrees QTc Int : 465 ms Atrial-paced rhythm Borderline left axis deviation Consider anterior infarct Confirmed by Cruz Bynum ([id number]) on 05/27/2018 4:36:59 PM Referred By: Confirmed By:Cruz Bynum
[2018-05-27] MEDS: ATORVASTATIN CALCIUM 40 MG TAB PO SCH (20:27)
[2018-05-28] MEDS: METOPROLOL SUCCINATE XR 100 MG TAB PO SCH (09:41)
[2018-05-28] MEDS: APIXABAN 5 MG TAB PO SCH (09:41)
[2018-05-28] MEDS: FUROSEMIDE 20 MG/2 ML VIAL IVP SCH ×2 (09:43→14:10)
--- NOTE | 2018-05-28 11:59 | ASMTCAGE ---
CAGE Do you feel you ought to Answers: Yes cut down on your drinking or drug use? Do people annoy you by Answers: No criticizing your drinking or drug use? Do you feel guilty about Answers: No your drinking or drug use? 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 Additional Comments drinks 3 shots of whiskey (3 oz total) plus 1 beer per night. Provided resources. Date Signed: 05/28/2018 11:59 AM Electronically Signed By:Nicole Johnson RN
--- NOTE | 2018-05-28 12:04 | ASMTCMCOM ---
CM Note CM Note Notes: 05/28/2018 Case Management Note Met w/pt. Completed CAGE. Provided resources. Encouraged pt to use [employer] insurance benefits for counseling, acupuncture and message. Pt reports 3 days since last cigarette and is not having any cravings for cigarettes. Pt plans to continue not smoking at discharge. Provided resources on relaxation techniques for pt as pt describes drinking nightly to fall asleep. Educated on disruptions alcohol causes on sleep cycle. Case Management d/c poc: Independent with follow up as directed. Case Management available if needs change. Date Signed: 05/28/2018 12:04 PM Electronically Signed By:Nicole Johnson RN
--- NOTE | 2018-05-28 15:38 | PDDCSUM ---
Discharge Summary Discharge Summary: Date of Admission: 05/25/2018 Date of Discharge: 05/28/2018 Consultants: cardiology (Danny López) Studies/Procedures: 1. ALYSSA-guided electrical cardioversion 2. Pacemaker interrogation Discharge Diagnoses: 1. Atrial fibrillation/flutter with RVR on AC 2. Acute CHF 3. LYLE, non-adherent to CPAP 4. Alcohol abuse 5. 2nd degree AV block s/p pacemaker placement 6. NSVT (noted on prior pacemaker interrogation) with diagnostic EP study negative for inducible VT 7. Non-obstructive CAD (on 09/2015 cath) 8. HTN 9. HLD 10. Morbid obesity Brief Hospital Course: 58yo F with paroxysmal atrial fibrillation on eliquis, LYLE with intolerance to CPAP, alcohol abuse, obesity presented with a week of significant weight gain ( 20 pounds?), leg swelling, and shortness of breath. She was found to be in atrial fibrillation/flutter with HRs in the 120s. She also had evidence of acutely decompensated CHF with cardiomegaly and pulmonary edema on CXR (new from 2017), leg edema, and elevated BNP. She was started on a diltiazem gtt and parenterally diuresed with interval improvement in her BNP. She underwent a successful ALYSSA-guided electrical cardioversion and remained in sinus rhythm. She was discharged on a diuretic, which was new for her, as well as her home metoprolol. I suspect her rapid rates lead to her heart failure. I strongly encouraged her to refrain from alcohol consumption, to work on losing weight via diet and exercise, and to get her LYLE treated as I believe these issues are driving her cardiac problems. Medications: Please refer to EMR for complete list. Changes this admission include addition of lasix 20mg BID #60. Follow Up Plan: 1. Recommend obtaining TTE to evaluate for new systolic ventricular dysfunction (this was cancelled by cardiology during this admission because she had ALYSSA, but I am unaware as to what this showed regarding her ventricular function) 2. Monitor volume status 3. Discuss with PCP new LYLE treatment options (she hasn't tried newer devices) 4. Continue to work on alcohol cessation and weight loss Physical Exam: Vitals and telemetry reviewed, normal sinus rhythm. Alert and oriented, RRR without murmur, lungs clear, abdomen obese and soft, 1+ BLE edema.
[2018-05-28 15:50] VITALS: BP 111/73
--- NOTE | 2018-05-28 15:53 | ASDISCHSUM ---
Discharge Information Plan Status:Home with No Needs Medically Cleared to Leave:05/27/2018 Discharge Date:05/27/2018 CM D/C Disposition:Home, Routine, Self-Care ADT D/C Disposition:Home, Routine, Self-Care Projected Discharge Date:05/27/2018 Transportation at D/C:Self Discharge Delay Reason: Follow-Up Date:05/27/2018 Discharge Slot: Final Diagnosis: Placement Information Patient Contact Information Contact Name:DAVID Relationship:Sister Address: Work Phone: City: [place] Phone: State/Zip Code: Email: Financial Information Financial Class:[employer] [facility] Desc[facility] Primary Plan Number:[id number] Secondary Plan Desc: Secondary Plan Number: Assessment Information LACE LACE Length of stay for Answers: 2 days current admission Acuity / Level of Answers: Yes Care: Did the patient have an inpatient admission? Comorbidities - select Answers: Coronary Artery Disease all that apply Other Notes: HTN; AFib; HLD # of Emergency department Answers: 1-2 visits in the last 6 months Score: 9 Date Signed: 05/28/2018 03:50 PM Electronically Signed By:Nicole Johnson RN [facility] Progress Note CM Note CM Note Notes: Spoke with pt in the room during rounds. 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 Pt has sister in the area. Pt admitted for atrial flutter in the setting of CHF fluid overload. Pt to diurese further and then undergo cardioversion tomorrow. Pt likely to discharge in 2 - 4 days and will be independent on discharge. No therapies ordered. CM to follow. D/C Plan: Independent Date Signed: 05/26/2018 03:39 PM Electronically Signed By:Loni Liu CAGE Questionnaire CAGE Do you feel you ought to Answers: Yes cut down on your drinking or drug use? Do people annoy you by Answers: No criticizing your drinking or drug use? Do you feel guilty about Answers: No your drinking or drug use? 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 Additional Comments drinks 3 shots of whiskey (3 oz total) plus 1 beer per night. Provided resources. Date Signed: 05/28/2018 11:59 AM Electronically Signed By:Nicole Johnson RN [facility] Progress Note CM Note CM Note Notes: 05/28/2018 Case Management Note Met w/pt. Completed CAGE. Provided resources. Encouraged pt to use [employer] benefits for counseling, acupuncture and message. Pt reports 3 days since last cigarette and is not having any cravings for cigarettes. Pt plans to continue not smoking at discharge. Provided resources on relaxation techniques for pt as pt describes drinking nightly to fall asleep. Educated on disruptions alcohol causes on sleep cycle. Case Management d/c poc: Independent with follow up as directed. Case Management available if needs change. Date Signed: 05/28/2018 12:04 PM Electronically Signed By:Nicole Johnson RN Case Management Discharge Plan Note Case Management Discharge Discharge Order Complete? Answers: Yes Discharge Comments Notes: 05/28/2018 Case Management Note Pt to discharge independent with follow up as directed. Date Signed: 05/28/2018 03:52 PM Electronically Signed By:Nicole Johnson RN Intervention Information
--- NOTE | 2018-06-02 13:22 | ECHO ---
[email or web address] [address] [address] Main: [phone] Fax: Transesophageal Echocardiography Name: GUADALUPE HINKLE MR#: [id number] Study Date: 05/27/2018 Study Time: 08:21 AM Date of : 1960 Age: 58 year(s) Height: ( ) Weight: ( ) BSA: Gender: Female Examination: ALYSSA Indication: Pre Cardioversion Image Quality: Contrast: Requested by: Lena Gonzalez Heart Rate: Rhythm: Atrial fibrillation BP: / Procedure Staff Rose Grower: Roverto Raza RDCS Reading Physician: Danny López MD Requesting Provider: ALYSSA Exam Details Conclusions: Normal global systolic LV function. There is a pacemaker lead noted in the right ventricle. An agitated saline study was performed and was negative for intracardiac shunting. No thrombus in left appendage. Moderate mitral valve regurgitation is present. Moderate aortic valve regurgitation is present. Mild to moderate tricuspid valve regurgitation. Proceeded with successful elective DC cardioversion.. Measurements: Chambers Valvular Assessment AV/MV Valvular Assessment TV/PV Normal Normal Normal Name Value Range Name Value Range Name Value Range TR Vmax: 2.06 mm/s ( - ) TR PGmax: 17 mmHg ( - ) syst. PAP: 22 mmHg ( - ) Additional Measurements: Valvular Assessment TV/PV Name Value CVP (est.): 5 mmHg Patient: GUADALUPE HINKLE Study Date: 05/27/2018 Page 1 of 2 08:21 AM Findings: Left Ventricle: Normal global systolic LV function. Right Ventricle: Normal RV function. There is a pacemaker lead noted in the right ventricle. Left Atrium: An agitated saline study was performed and was negative for intracardiac shunting. Left Atrial Appendage: Good color flow doppler in the left atrial appendage. No thrombus in left appendage. Right Atrium: The right atrium is normal in size. Mitral Valve: The mitral valve is normal in appearance. Moderate mitral valve regurgitation is present. Aortic Valve: The aortic valve is tri-leaflet. Moderate aortic valve regurgitation is present. Tricuspid Valve: Mild to moderate tricuspid valve regurgitation. Pulmonic Valve: The pulmonic valve is normal in appearance and function. Aorta: The aorta is normal. Pericardium: No pericardial effusion. Exam Comments: Proceeded with successful elective DC cardioversion.. l1n (No Signature Object) Patient: GUADALUPE HINKLE Study Date: 05/27/2018 Page 2 of 2 08:21 AM D:_[id number]
== END 2018-05-28 16:23 | disposition home or self-care (01) | DRG 310 ==
LOC: F2W 18:08
PROVIDERS: ADMIT Internal Medicine; ATTEND Internal Medicine
DX: I48.92 Unspecified atrial flutter (principal); E66.01 Morbid (severe) obesity due to excess calories; I48.0 Paroxysmal atrial fibrillation; I11.0 Hypertensive heart disease with heart failure; I50.9 Heart failure, unspecified; F10.10 Alcohol abuse, uncomplicated; I25.10 Atherosclerotic heart disease of native coronary artery without angina pectoris; G47.33 Obstructive sleep apnea (adult) (pediatric); E78.5 Hyperlipidemia, unspecified; Z72.0 Tobacco use; Z95.810 Presence of automatic (implantable) cardiac defibrillator; Z79.01 Long term (current) use of anticoagulants
CPT/HCPCS: 84484-PO; 97116-GP; 97161-GP; 97165-GO; J0461; J1650; J1940; J2704

== ENCOUNTER 2018-08-13 07:18 | Emergency (ER) | payer OTHER ==
--- NOTE | 2018-08-13 07:42 | EDPHY ---
HPI/HX/ROS/PE/MDM Narrative: CHIEF COMPLAINT: Shortness of breath HPI: The patient is a 58 y/o female with a history of CHF and atrial flutter complaining of acute onset shortness of breath that woke her from sleep around 01:00 this morning, about 6.5 hours ago. She was admitted two months ago for acute CHF and rapid atrial flutter and says her symptoms today feel like "how it started before, except my heart isn't racing." Her shortness of breath is worse when lying flat and feels better while sitting up in the room during assessment. She's gained 3lbs in the last week, but denies any notable leg swelling. She is on a diuretic and denies missing any doses of this. She mentions she has been eating a lot of potato chips recently. She denies chest pain at any point. No abdominal pain, nausea, vomiting, fever. She continues to smoke daily. REVIEW OF SYSTEMS: A comprehensive 10 system review of systems is otherwise negative aside from elements mentioned in the history of present illness. 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 Prior medical records reviewed including admission 05/25/18 for dyspnea and weight gain. PHYSICAL EXAM: General:Patient is alert, in no acute distress. Obese. ENT:Eyes are normal to inspection. ENT inspection normal. Neck: Normal inspection. Full range of motion. Respiratory:No respiratory distress. Breath sounds normal bilaterally. Cardiovascular: Regular rate and rhythm. Strong peripheral pulses. Normal cap refill. Abdomen:The abdomen is nontender to palpation. There are no peritoneal signs. Back: Normal to inspection. No tenderness to palpation. Skin: Normal color. No rash. Warm and dry. Extremities: Trace pedal edema. Full range of motion. Neuro: Oriented x3. Normal motor function. Normal sensory function. ED Course: This is a 58 y/o female with a history that includes CHF, atrial flutter, CAD, sleep apnea, and obesity who presents with a 6.5-hour history of dyspnea that is worse when lying flat. Symptoms feel similar to her prior admission for CHF. Lungs are clear to auscultation and she has trace pedal edema bilaterally. Symptoms may represent recurrent CHF. She is not hypoxemic. Plan for IV, labs, EKG, chest x-ray. The 12 lead EKG was interpreted by myself. See hard copy and/or "tracemaster" electronic copy for interpretation. Chest x-ray: no infiltrate. Labs unremarkable. Reassessed patient and discussed findings. I've found no emergently concerning causes for her symptoms at this time. Recommended following up with her gang punch operator within the next 3 days. She is comfortable with plan for discharge. Return precautions discussed. MDM: This patient presents with signs of possible worsening CHF, but at this time there are no signs of true acute exacerbation. I see no indication of PE, PNA, PTx, sepsis or ACS. - Data Points Imaging Results: Imaging Impressions Chest X-Ray 08/13/18 07:33 Impression: 1. Mild pulmonary venous hypertension. 2. No pleural effusion or pneumothorax. Imaging: I viewed and interpreted images myself Laboratory Results: Laboratory Results 08/13/18 07:45 08/13/18 07:45 08/13/18 08/13/18 08/13/18 07:54 07:45 07:45 WBC 7.84 10^3/uL 10^3/uL (3.80-9.50) RBC 4.91 10^6/uL 10^6/uL (4.18-5.33) Hgb 15.2 g/dL g/dL (12.6-16.3) Hct 44.5 % % (38.0-47.0) MCV 90.6 fL fL (81.5-99.8) MCH 31.0 pg pg (27.9-34.1) MCHC 34.2 g/dL g/dL (32.4-36.7) RDW 13.2 % % (11.5-15.2) Plt Count 187 10^3/uL 10^3/uL (150-400) MPV 10.4 fL fL (8.7-11.7) Neut % (Auto) 59.9 % % (39.3-74.2) Lymph % (Auto) 27.3 % % (15.0-45.0) [place] % (Auto) 7.0 % % (4.5-13.0) Eos % (Auto) 4.6 % % (0.6-7.6) Baso % (Auto) 0.8 % % (0.3-1.7) Nucleat RBC Rel Count 0.0 % % (0.0-0.2) Absolute Neuts (auto) 4.70 10^3/uL 10^3/uL (1.70-6.50) Absolute Lymphs (auto) 2.14 10^3/uL 10^3/uL (1.00-3.00) Absolute Monos (auto) 0.55 10^3/uL 10^3/uL (0.30-0.80) Absolute Eos (auto) 0.36 10^3/uL 10^3/uL (0.03-0.40) Absolute Basos (auto) 0.06 10^3/uL 10^3/uL (0.02-0.10) Absolute Nucleated RBC 0.00 10^3/uL 10^3/uL (0-0.01) Immature Gran % 0.4 % % (0.0-1.1) Immature Gran # 0.03 10^3/uL 10^3/uL (0.00-0.10) Sodium 139 mEq/L mEq/L (135-145) Potassium 4.2 mEq/L mEq/L (3.5-5.2) Chloride 107 mEq/L mEq/L (97-110) Carbon Dioxide 26 mEq/l mEq/l (22-31) Anion Gap 6 mEq/L mEq/L (6-14) BUN 21 mg/dL mg/dL (7-23) Creatinine 0.7 mg/dL mg/dL (0.6-1.0) Estimated GFR > 60 Glucose 104 mg/dL H mg/dL (70-100) Calcium 9.7 mg/dL mg/dL (8.5-10.4) POC Troponin I 0.01 ng/mL ng/mL (0.00-0.08) NT-Pro-B Natriuret Pep 266 pg/mL H pg/mL (0-125) Point of Care Test Results: Chemistry 08/13/18 07:54 POC Troponin I 0.01 ng/mL ng/mL (0.00-0.08) General Time Seen by Provider: 08/13/18 07:32 Initial Vital Signs: Initial Vital Signs Temperature (C) 36.6 C 08/13/18 07:23 Heart Rate 85 08/13/18 07:23 Respiratory Rate 16 08/13/18 07:23 Blood Pressure 177/93 H 08/13/18 07:23 O2 Sat (%) 98 08/13/18 07:23 O2 Delivery Mode Room Air Allergies/Adverse Reactions: codeine [Codeine] Allergy (Mild, Verified 08/13/18 07:21) Rash Home Medications: Medication Instructions Recorded Apixaban [Eliquis] 5 mg PO BID #0 07/10/16 Atorvastatin Calcium [Lipitor 40 40 mg PO HS 01/07/18 mg (*)] Aspirin EC [Aspirin EC 81 mg (*)] 81 mg PO HS 05/25/18 Furosemide 20 mg PO BID #60 tablet 05/28/18 Departure - Departure Disposition: Home, Routine, Self-Care Clinical Impression: Shortness of breath Condition: Good Instructions: Shortness of Breath (ED) Additional Instructions: Follow up with your gang punch operator within 3 days without fail. Return to the ED for any worsening of condition. Referrals: Ngoc Gupta NP [Primary Care Provider] - As per Instructions Riley Jack MD [Medical Doctor] - As per Instructions Report Scribed for: Naga Mcdaniels Report Scribed by: Alyssa Urrutia Date of Report: 08/13/18 Time of Report: 07:46 Physician Review and Approval Statement: Portions of this note were transcribed by an ED scribe. I personally performed the history, physical exam, and medical decision making; and confirm the accuracy of the information in the transcribed note.
[2018-08-13 08:17] LABS: PLATELET COUNT 187 10^3/uL (150-400)
[2018-08-13 09:49] VITALS: BP 165/98
== END 2018-08-13 09:52 | disposition home or self-care (01) ==
DX: R06.02 Shortness of breath (principal)
CPT/HCPCS: 84484-ER